=== PATIENT | male | born 1975 | race African-American/Black ===

== ENCOUNTER → 2017-09-23 | Outpatient (CLI) | payer OTHER | END | disposition home or self-care (01) | LOC: PCVCIMAG 14:56 | DX: I25.10 Atherosclerotic heart disease of native coronary artery without angina pectoris (principal); I10 Essential (primary) hypertension | CPT/HCPCS: 93325; 93351 ==

== ENCOUNTER → 2018-11-10 | Outpatient (CLI) | payer OTHER ==
--- NOTE | 2018-11-11 09:47 | PCVCIMAG ---
APPROVED REPORT Study performed: 11/10/2018 14:20:11 Exam: Stress Echocardiogram Indication: Hyperlipidemia, Hypertension, CAD, Atrial fib Patient Location: Echo lab Stress Nurse: Sindy Gibson RN Status: routine Ht: 5 ft 10 in HR: 93 bpm BP: 140/90 mmHg Rhythm: NSR Medical History Medical History: HTN, Hyperlipidemia Procedure The patient underwent an Exercise Stress Test using the Thanh Protocol. Blood pressure, heart rate, and EKG were monitored. An Echocardiogram was performed by gas plant technician in four stages in quad fashion. At peak stress, four selected images were obtained and placed side by side with resting images for comparison. Stress Test Details Stress Test: Exercise stress testing was performed using a Thanh protocol. HR Resting HR: 93 bpmMax Heart Rate (APMHR): 176 bpm Max HR Achieved: 151 bpmTarget HR (85% APMHR): 149 bpm % of APMHR: 85 Recovery HR: 97 bpm HR response to stress: Normal HR response to stress BP Resting BP: 140/90 mmHg Max BP: 178/80 mmHg Recovery BP: 144/78 mmHg BP response to stress: Normal blood pressure response to stress. ECG Resting ECG: Sinus Rhythm Stress ECG: Sinus Rhythm Recovery ECG: Sinus Rhythm Clinical Reason for Termination: Maximal effort Exercise duration: 9 min sec Highest Stage Achieved: Stage 3: 3.4 mph at 14% grade. Exercise capacity: 10.40 METs Overall Exercise Capacity for Age: Average Pre-Stress Echo The resting Echocardiogram showed normal left ventricular contractility with an estimated Ejection Fraction of about 55-60%. Normal wall motion in all segments on baseline images. Post-Stress Echo The stress Echocardiogram showed normal left ventricular contractility with an estimated Ejection Fraction of about 65-70%. Normal augmentation of wall motion in all segments on post stress images. Clinical No clinical or ECG evidence for ischemia. Conclusion Clinical Response: Non-ischemic Exercise Capacity: Average Stress ECG Response: Non-ischemic Stress Echo Images: Non-ischemic The left ventricle is normal in size and both the rest and stress images. Mild concentric left ventricular hypertrophy. Other Information Study Quality: Good <Conclusion> The left ventricle is normal in size and both the rest and stress images. Mild concentric left ventricular hypertrophy.
== END | disposition home or self-care (01) ==
LOC: PCVCIMAG 13:53
PROVIDERS: ATTEND Internal Medicine Cardiovascular Disease
DX: I10 Essential (primary) hypertension (principal); I25.10 Atherosclerotic heart disease of native coronary artery without angina pectoris; I48.91 Unspecified atrial fibrillation; E78.5 Hyperlipidemia, unspecified; I73.00 Raynaud's syndrome without gangrene
CPT/HCPCS: 93325; 93351